=== PATIENT | female | born 1985 | race Caucasian/White ===

== ENCOUNTER → 2020-10-23 | Outpatient (REF) | payer BC | LOC: M SFHCWAGY 14:57 | PROVIDERS: ATTEND Advanced Practice Midwife | DX: Z12.4 Encounter for screening for malignant neoplasm of cervix (principal); R87.610 Atypical squamous cells of undetermined significance on cytologic smear of cervix (ASC-US) | CPT/HCPCS: 87624; G0123 ==

== ENCOUNTER → 2021-01-03 | Outpatient (CLI) | payer BC | LOC: M WHC 09:24 | PROVIDERS: ATTEND Obstetrics & Gynecology | DX: N92.1 Excessive and frequent menstruation with irregular cycle (principal); Z53.9 Procedure and treatment not carried out, unspecified reason ==

== ENCOUNTER → 2021-04-09 | Outpatient (CLI) | payer BC ==
[~2021-04-09] MED LIST: VITMTA PO; VYVA60CA PO
== END ==
LOC: M LABSMTC 09:28
PROVIDERS: ATTEND Anesthesiology
DX: Z01.812 Encounter for preprocedural laboratory examination (principal); Z20.822 Contact with and (suspected) exposure to COVID-19

== ENCOUNTER 2021-04-13 07:56 | Day surgery (SDC) | payer BC ==
[~2021-04-13] VITALS: Ht 172.7 cm; Wt 116.1 kg
[~2021-04-13 07:56] MED LIST changes: +LR 1,000 ML IV ONE; +ceFAZolin SOD 2 GM in IV 1 EA IV ONE
[2021-04-13 08:29] LABS: HEMATOCRIT 44.3 % (36.0-47.0); HEMOGLOBIN 14.6 g/dl (12.0-15.5); MEAN CORPUSCULAR HEMOGLOBIN 29.1 pg (27.0-33.0); MEAN CORPUSCULAR VOLUME 88.2 fl (80.0-96.0); PLATELET COUNT, AUTOMATED 365 10^3/uL (150-450); RED BLOOD COUNT 5.02 10^6/uL (4.00-5.40); WHITE BLOOD COUNT 9.7 10^3/uL (4.0-10.0)
[2021-04-13] MEDS ORDERED: IBUP200C25 PO (08:45)
[2021-04-13] MEDS ORDERED: SCOPOLAMINE 1MG TRANSDERMAL PATCH TOP ONE (09:25)
[2021-04-13] MEDS ORDERED: BUPIVACAINE HCL 0.25% 30ML VIAL As Ordered ONE (09:48)
[2021-04-13] MEDS ORDERED: dexameTHASONE 4 MG/ML 1ML VIAL (J1100 PER 1MG) As Ordered ONE (10:26)
[2021-04-13] MEDS ORDERED: HYDROmorphone HCL 2MG/ML 1ML VIAL As Ordered ONE (10:26)
[2021-04-13] MEDS ORDERED: MIDAZOLAM INJ 2MG/2ML VIAL (J2250 PER 1MG) As Ordered ONE (10:26)
[2021-04-13] MEDS ORDERED: LIDOCAINE 2% 100MG/5ML SDV (FOR ANES.) As Ordered ONE (10:26)
[2021-04-13] MEDS ORDERED: ONDANSETRON 4MG/2ML VIAL As Ordered ONE (10:26)
[2021-04-13] MEDS ORDERED: KETOROLAC 60MG 2ML VIAL As Ordered ONE (10:26)
[2021-04-13] MEDS ORDERED: SUGAMMADEX SODIUM 500 MG/5 ML VIAL (BRIDION) As Ordered ONE (10:26)
[2021-04-13] MEDS ORDERED: propofoL 200 MG/20 ML VIAL As Ordered ONE (10:26)
[2021-04-13] MEDS ORDERED: ROCURONIUM BROMIDE 50 MG/5 ML VIAL As Ordered ONE (10:26)
[2021-04-13] MEDS ORDERED: ACETAMINOPHEN 1000MG 100ML IV BTL (OFIRMEV) (J0131 PER 10MG) As Ordered ONE (10:26)
[2021-04-13] MEDS ORDERED: fentaNYL 100 MCG/2 ML INJECTION (J3010) As Ordered ONE (10:26)
[2021-04-13] MEDS ORDERED: ONDANSETRON 4MG/2ML VIAL IV PRN (12:15)
[2021-04-13] MEDS ORDERED: fentaNYL 100 MCG/2 ML INJECTION (J3010) IV PRN (12:15)
[2021-04-13] MEDS ORDERED: LR 1,000 ML IV SCH (12:15)
[2021-04-13] MEDS ORDERED: NORCO, ANEXSIA 5/325MG TABLET (HYDROcodone/ACETAMINOPHEN) PO PRN (12:20)
[2021-04-13] MEDS ORDERED: PERCOCET 5MG/325MG TAB PO PRN ×2 (12:55)
[2021-04-13 13:28] VITALS: BP 126/60
[2021-04-13] MEDS ORDERED: KETOROLAC 30 MG/ML 1ML VIAL IV SCH (18:00)
== END 2021-04-13 13:31 | disposition home or self-care (01) ==
LOC: M SDC 07:56
PROVIDERS: ATTEND Obstetrics & Gynecology
DX: N93.8 Other specified abnormal uterine and vaginal bleeding (principal); K21.9 Gastro-esophageal reflux disease without esophagitis; F12.20 Cannabis dependence, uncomplicated; Z91.010 Allergy to peanuts; Z30.432 Encounter for removal of intrauterine contraceptive device
CPT/HCPCS: 36415; 58301; 58552; 81025; 85027; 86850; 86900; 86901; 88307; J0131; J0690; J1100; J1170; J1885; J2250; J2405; J3010; S2900